=== PATIENT | female | born 1945 | race Caucasian/White ===

== ENCOUNTER 2018-05-12 04:29 | Observation (INO) | payer MEDICARE ==
[~2018-05-12] VITALS: Ht 157.5 cm; Wt 78.8 kg
[2018-05-12] VITALS (90 sets, daily range): BP systolic 127–180; BP diastolic 47–80; PULSE 59–66; TEMP 97.6–98.7; O2SAT 93–97
[~2018-05-12 04:29] MED LIST: ASPIRIN E.C. 8181 MG PO; BRILINTA90 MG PO; CARTIA XT180 MG PO; CLARITIN 1010 MG/TAB PO; CRESTOR 10MG10 MG PO; FLONASEALLERGY NS; PRIL40 PO; PROVENTIL0.09 MG/A1 IH
[2018-05-12 05:13] LABS: BASO # 0.1 (0.0-0.2); BASO % 0.6 % (0.0-2.0); EOS # 0.1 (0.0-0.7); EOS % 1.1 % (0-4.0); GRAN # 5.5 (1.4-6.5); GRAN % 62.9 % (42.2-75.2); HEMATOCRIT 39.9 % (37.0-47.0); HEMOGLOBIN 13.7 g/dl (12.5-16.0); LYMPH # 2.4 (1.2-3.4); LYMPH % 27.4 % (20.0-51.0); MEAN CELL VOLUME 88 fl (80.0-100.0); MEAN CORPUSCULAR HEMOGLOBIN 30 pg (27.0-31.0); MEAN CORPUSCULAR HGB CONC 34 g/dl (33.0-37.0); MEAN PLATELET VOLUME 8.6 fl (7.4-10.4); MONO # 0.7 (0.1-0.6); MONO % 7.7 % (1.7-9.3); PLATELET COUNT 288 K/mm3 (130-400); RED BLOOD COUNT 4.55 M/mm3 (4.10-5.30); REDCELL DISTRIBUTION WIDTH-CV 13.8 % (11.5-14.5)
[2018-05-12 05:20] LABS: PROTHROMBIN TIME 11.6 SECONDS (9.7-12.8)
[2018-05-12 05:27] LABS: ALANINE AMINOTRANSFERASE 16 U/L (9-52); ALBUMIN 4.3 gm/dL (3.5-5.0); ALKALINE PHOSPHATASE 123 U/L (50-136); ANION GAP 11 mmol/L (7-16); AST,SGOT 17 U/L (15-37); BILIRUBIN,TOTAL 0.2 mg/dL (0.0-1.0); BLOOD UREA NITROGEN 8 mg/dL (7-17); CALCIUM 9.6 mg/dL (8.4-10.2); CARBON DIOXIDE 26 mmol/L (22-30); CHLORIDE 104 mmol/L (98-107); CREATININE, serum 0.86 mg/dL (0.52-1.25); GLUCOSE 102 mg/dL (74-106); POTASSIUM 3.2 mmol/L (3.4-5.0); SODIUM 140 mmol/L (137-145); TOTAL PROTEIN 7.6 gm/dL (6.4-8.2)
[2018-05-12 05:40] LABS: TROPONIN-I < 0.012 ng/mL (0.000-0.035)
[2018-05-12] MEDS ORDERED: COZAAR 50MG50 MG/TAB PO (06:53)
[2018-05-12] MEDS ORDERED: PLAVIX 75MG TAB75 MG PO (06:53)
--- NOTE | 2018-05-12 08:30 | NUR ---
Pt arrived on wheelchair, ambulated from chair to bed without difficulty, accompanied by Silvestre. Pt AOx4. Call light within reach, no complaints at this time.
--- NOTE | 2018-05-12 09:06 | NUR ---
MD Arya and MARTIN Rausch at bedside talking with pt.
--- NOTE | 2018-05-12 10:21 | NUR ---
Pt arrived to room 317 via with REYNALDO Hines. Pt able to transfer from the to the floor bed without difficulty. Oriented to room and call light system. Pt is sitting up in the bed watching TV at this time and she denies further needs. Call light within reach, will continue to monitor.
--- NOTE | 2018-05-12 18:22 | NUR ---
Since arriving to the floor the pt has been resting on and off. She has remained free of pain. Pt is sitting up in the bed watching TV at this time and she denies further needs. Call light within reach.
--- NOTE | 2018-05-12 18:45 | NUR ---
Report given to REYNALDO Trujillo.
--- NOTE | 2018-05-12 19:29 | NUR ---
Shift assessment complete. Pt resting in bed, awake, a&o, cooperative c cares. Pt reports continued chronic R knee pain, PRN med recently admin, denies needs at this time. IV's patent. Tele in place, pt remains bradycardic, asymptomatic. Pt denies needs. Call light in reach, will monitor.
--- NOTE | 2018-05-12 19:37 | NUR ---
Shift assessment complete. Pt resting in bedside recliner, awake, a&o, cooperative c cares. PT denies pain or any other c/o at this time. INT patent. Tele in place. PT denies needs. Call light in reach, will monitor.
[2018-05-13] VITALS (9 sets, daily range): BP systolic 143–177; BP diastolic 55–83; PULSE 57–93; TEMP 97.5–98.4
[2018-05-13 07:51] LABS: ANION GAP 7 mmol/L (7-16); BLOOD UREA NITROGEN 9 mg/dL (7-17); CARBON DIOXIDE 28 mmol/L (22-30); CHLORIDE 103 mmol/L (98-107); CHOLESTEROL 114 mg/dL (120-200); CHOLESTEROL RISK RATIO 3.1; CREATININE, serum 0.81 mg/dL (0.52-1.25); GLUCOSE 91 mg/dL (74-106); HDL CHOLESTEROL 36 mg/dL; LDL CHOLESTEROL 62 mg/dL; POTASSIUM 3.4 mmol/L (3.4-5.0); SODIUM 138 mmol/L (137-145); TRIGLYCERIDE 80 mg/dL
[2018-05-13 07:58] LABS: TROPONIN-I < 0.012 ng/mL (0.000-0.035)
--- NOTE | 2018-05-13 08:40 | NUR ---
PT TAKEN DOWN VIA WHEELCHAIR FOR [facility] BY [facility]
--- NOTE | 2018-05-13 10:26 | NUR ---
PT RETURNED FROM STRESS TEST VIA WHEELCHAIR BY [employer] TECH
--- NOTE | 2018-05-13 13:36 | NUR ---
First visit from the senior hris analyst. No needs right now.
[2018-05-13] MEDS ORDERED: COZAAR100 MG PO (14:04)
--- NOTE | 2018-05-13 14:50 | NUR ---
DISCHARGE INSTRUCTIONS REVIEWED WITH PATIENT. IV DISCONTINUED. PT ESCORTED TO ENTRANCE WHERE PT'S AWAITED. PT'S BELONGINGS DISCHARGED WITH PATIENT.
--- NOTE | 2018-05-13 15:01 | NUR ---
SW unable to meet with patient before discharge.
== END 2018-05-13 14:50 | disposition home or self-care (01) ==
LOC: COL.ER 04:29 → MEDICAL 06:08 → ICU 06:08 → MEDICAL 10:24
PROVIDERS: Emergency Medicine; Family Medicine; ADMIT Internal Medicine
DX: R07.9 Chest pain, unspecified (principal); I10 Essential (primary) hypertension; I70.1 Atherosclerosis of renal artery; I25.10 Atherosclerotic heart disease of native coronary artery without angina pectoris; F17.210 Nicotine dependence, cigarettes, uncomplicated; K21.9 Gastro-esophageal reflux disease without esophagitis; Z95.5 Presence of coronary angioplasty implant and graft; E78.5 Hyperlipidemia, unspecified; Z79.82 Long term (current) use of aspirin; Z79.899 Other long term (current) drug therapy; Z82.49 Family history of ischemic heart disease and other diseases of the circulatory system
CPT/HCPCS: A9500; G0378; J1650; J2785; J3480

== ENCOUNTER 2020-04-17 06:48 | Day surgery (SDC) | payer MEDICARE ==
[2020-04-17] VITALS (13 sets, daily range): BP systolic 131–162; BP diastolic 64–90; PULSE 50–66; TEMP 97.5
[~2020-04-17] VITALS: Ht 157.5 cm; Wt 77.1 kg
[~2020-04-17 06:48] MED LIST changes: +COZAAR 50MG50 MG/TAB PO; +COZAAR100 MG PO; +PLAVIX 75MG TAB75 MG PO
[2020-04-17 07:40] LABS: HEMATOCRIT 38.9 % (37.0-47.0); MEAN CELL VOLUME 90 fl (80.0-100.0); MEAN CORPUSCULAR HEMOGLOBIN 30 pg (27.0-31.0); MEAN CORPUSCULAR HGB CONC 33 g/dl (33.0-37.0); MEAN PLATELET VOLUME 8.7 fl (7.4-10.4); PLATELET COUNT 410 K/mm3 (130-400); RED BLOOD COUNT 4.33 M/mm3 (4.10-5.30); REDCELL DISTRIBUTION WIDTH-CV 14.5 % (11.5-14.5)
[2020-04-17 07:52] LABS: PARTIAL THROMBOPLASTIN TIME 34.6 SECONDS (26.0-37.0)
[2020-04-17] MEDS ORDERED: KOVANAZE 6-0.11 EACH NS (08:00)
[2020-04-17 08:03] LABS: CALCIUM 9.5 mg/dL (8.4-10.2); CREATININE, serum 0.93 (0.52-1.25); POTASSIUM 3.6 mmol/L (3.4-5.0)
--- NOTE | 2020-04-17 09:13 | NUR ---
SEE MERGE DOCUMENTATION FOR MEDICATION ADMINISTRATION AND INTRA/POST PROCEDURE SEDATION ASSESSMENTS.
--- NOTE | 2020-04-17 14:20 | NUR ---
Dressing to rt groin remains clean, dry and intact. Gait steady. Pt has tolerated PO without issue. IV DC'd with catheter intact. DC instructions reviewed, and pt expresses understanding. She is assisted out to car by wheelchair with belongings.
== END 2020-04-17 16:11 | disposition home or self-care (01) ==
LOC: COL.CAR 06:48
PROVIDERS: Internal Medicine Cardiovascular Disease
DX: I70.1 Atherosclerosis of renal artery (principal); I25.10 Atherosclerotic heart disease of native coronary artery without angina pectoris; I10 Essential (primary) hypertension; I73.9 Peripheral vascular disease, unspecified; Z79.02 Long term (current) use of antithrombotics/antiplatelets; Z79.82 Long term (current) use of aspirin; Z79.899 Other long term (current) drug therapy; Z88.2 Allergy status to sulfonamides; Z95.5 Presence of coronary angioplasty implant and graft
CPT/HCPCS: C1760; C1894; J1644; J2250; J3010; Q9967

== ENCOUNTER 2021-11-27 09:05 | Day surgery (SDC) | payer MEDICARE ==
[~2021-11-27] VITALS: Ht 157.5 cm; Wt 79.1 kg
[2021-11-27] VITALS (498 sets, daily range): BP systolic 138–179; BP diastolic 59–86; PULSE 57–67; TEMP 98.3–98.9; O2SAT 88–100
[~2021-11-27 09:05] MED LIST changes: +KOVANAZE 6-0.11 EACH NS
[2021-11-27] MEDS ORDERED: TOPROL XL 50MG50 MG PO (09:35)
[2021-11-27] MEDS ORDERED: NORVASC 10MG10 MG PO (09:36)
[2021-11-27] MEDS ORDERED: ALLEGRA 180MG180 MG PO (09:54)
[2021-11-27] MEDS ORDERED: AFRIN 15 ML15 ML NS (09:54)
[2021-11-27] MEDS ORDERED: FLONASEALLERGY NS (09:54)
[2021-11-27] MEDS ORDERED: CLARITIN 1010 MG/TAB PO (09:55)
[2021-11-27 10:16] LABS: HEMATOCRIT 38.1 % (37.0-47.0); HEMOGLOBIN 13.3 g/dl (12.5-16.0); MEAN CELL VOLUME 87 fl (80.0-100.0); MEAN CORPUSCULAR HEMOGLOBIN 30 pg (27-31); MEAN CORPUSCULAR HGB CONC 35 g/dl (33.0-37.0); MEAN PLATELET VOLUME 8.8 fl (7.4-10.4); PLATELET COUNT 341 K/mm3 (130-400); RED BLOOD COUNT 4.37 M/mm3 (4.10-5.30); REDCELL DISTRIBUTION WIDTH-CV 13.5 % (11.5-14.5)
[2021-11-27 10:23] LABS: PROTHROMBIN TIME 11.7 SECONDS (9.7-12.8)
[2021-11-27 10:26] LABS: PARTIAL THROMBOPLASTIN TIME 36.3 SECONDS (26.0-37.0)
[2021-11-27 10:36] LABS: CALCIUM 9.6 mg/dL (8.4-10.2); CREATININE, serum 0.87 mg/dL (0.57-1.11); POTASSIUM 4.2 mmol/L (3.5-4.5)
[2021-11-28 00:09] VITALS: BP 170/86; PULSE 67; TEMP 98.9
[2021-11-28 05:05] VITALS: O2SAT 95
[2021-11-28 05:06] VITALS: O2SAT 95
[2021-11-28 05:16] VITALS: BP 155/56; PULSE 54; TEMP 98.3
[2021-11-28 07:02] LABS: BASO # 0.1 K/mm3 (0.0-0.2); BASO % 0.6 % (0.0-2.0); EOS # 0.1 K/mm3 (0.0-0.7); EOS % 1.8 % (0.0-4.0); GRAN # 4.8 K/mm3 (1.4-6.5); GRAN % 60.8 % (42.2-75.2); HEMATOCRIT 37.6 % (37.0-47.0); HEMOGLOBIN 12.5 g/dl (12.5-16.0); LYMPH # 2.3 K/mm3 (1.2-3.4); LYMPH % 29.6 % (20.0-51.0); MEAN CELL VOLUME 89 fl (80.0-100.0); MEAN CORPUSCULAR HEMOGLOBIN 30 pg (27-31); MEAN CORPUSCULAR HGB CONC 33 g/dl (33.0-37.0); MEAN PLATELET VOLUME 8.7 fl (7.4-10.4); MONO # 0.5 K/mm3 (0.1-0.6); MONO % 6.8 % (1.7-9.3); PLATELET COUNT 307 K/mm3 (130-400); RED BLOOD COUNT 4.21 M/mm3 (4.10-5.30); REDCELL DISTRIBUTION WIDTH-CV 13.4 % (11.5-14.5)
[2021-11-28 07:16] LABS: CALCIUM 9.2 mg/dL (8.4-10.2); CREATININE, serum 0.77 mg/dL (0.57-1.11); POTASSIUM 3.9 mmol/L (3.5-4.5)
[2021-11-28 08:00] VITALS: BP 150/92; PULSE 54; TEMP 97.7
[2021-11-28 09:36] VITALS: O2SAT 99
[2021-11-28] MEDS ORDERED: CRESTOR20 MG PO (11:00)
== END 2021-11-28 11:27 | disposition home or self-care (01) ==
LOC: COL.CAR 09:05 → ICU 12:24 → COL.CAR 11-28 11:27
PROVIDERS: Internal Medicine Cardiovascular Disease
DX: I25.110 Atherosclerotic heart disease of native coronary artery with unstable angina pectoris (principal); I10 Essential (primary) hypertension; I15.0 Renovascular hypertension; Z98.890 Other specified postprocedural states
CPT/HCPCS: OP; C1769; C1874; C1887; C9600; J0583; J1644; J2250; J3010; Q9967